=== PATIENT | female | born 1970 ===

== ENCOUNTER 2022-04-21 08:51 | Day surgery (SDC) | payer OTHER ==
[2022-04-21] MEDS ORDERED: ZITHROMAX500 MG PO (13:36)
[2022-04-21] MEDS ORDERED: IBU400 MG PO (13:36)
== END 2022-04-21 17:52 | disposition home or self-care (01) ==
LOC: CIR.AMB 08:51
PROVIDERS: ATTEND Obstetrics & Gynecology
DX: N84.0 Polyp of corpus uteri (principal); Z20.822 Contact with and (suspected) exposure to COVID-19; I10 Essential (primary) hypertension; G43.909 Migraine, unspecified, not intractable, without status migrainosus; M19.90 Unspecified osteoarthritis, unspecified site; K21.9 Gastro-esophageal reflux disease without esophagitis